=== PATIENT | male | born 1980 | race Caucasian/White ===

== ENCOUNTER 2022-10-06 05:36 | Emergency (ER) | payer SELFPAY ==
[2022-10-06] MEDS ORDERED: Ondansetron ODT 4 MG TAB ONE (06:09)
[2022-10-06] MEDS ORDERED: Benzonatate 100 MG CAP ONE (06:09)
== END 2022-10-06 06:28 | disposition home or self-care (01) ==
LOC: NAV ERS 05:36
DX: B34.9 Viral infection, unspecified (principal); F17.210 Nicotine dependence, cigarettes, uncomplicated; Z79.899 Other long term (current) drug therapy
CPT/HCPCS: 87804; J7620; Q0162